=== PATIENT | female | born 1960 | race Caucasian/White ===

== ENCOUNTER → 2016-10-05 | Outpatient (CLI) | payer OTHER | END | disposition home or self-care (01) | LOC: CFH 14:45 | PROVIDERS: ATTEND Specialist | DX: Z12.31 Encounter for screening mammogram for malignant neoplasm of breast (principal) | CPT/HCPCS: 77063; G0202 ==

== ENCOUNTER 2017-11-02 06:18 | Day surgery (SDC) | payer OTHER ==
[~2017-11-02] VITALS: Ht 154.9 cm; Wt 80.5 kg
[~2017-11-02 06:18] MED LIST: APIX5TAB PO; FLEC50TA25 PO; LEVO100T5 PO; METO50TA6 PO
[2017-11-02 06:40] VITALS: BP 159/81
[2017-11-02] MEDS ORDERED: CETI-237 PO (06:53)
[2017-11-02] MEDS ORDERED: calcium/mag/zinc PO (06:53)
[2017-11-02] MEDS ORDERED: GLUC1CAP18 PO (06:53)
[2017-11-02] MEDS ORDERED: MULT-6 PO (06:53)
[2017-11-02] MEDS ORDERED: MIDAZOLAM 1 MG/ML, 5ML ONE (07:13)
[2017-11-02] MEDS ORDERED: FENTANYL PF 100 MCG/2ML ONE (07:13)
[2017-11-02] MEDS ORDERED: HEPARIN 1,000 UNITS/ML, 10ML ONE (07:14)
[2017-11-02] MEDS ORDERED: LIDOCAINE/PF 1%, 30ML ONE (07:30)
== END 2017-11-02 12:00 ==
LOC: CACL 06:18
PROVIDERS: ATTEND Internal Medicine Cardiovascular Disease
DX: I44.2 Atrioventricular block, complete (principal); Z91.040 Latex allergy status; Z91.018 Allergy to other foods; Z90.710 Acquired absence of both cervix and uterus; Z98.890 Other specified postprocedural states; Z79.82 Long term (current) use of aspirin
CPT/HCPCS: 93458; 99156; C1760; C1769; C1894; J2250; J3010; J3490; Q9967; J1644

== ENCOUNTER → 2017-12-20 | Outpatient (CLI) | payer OTHER ==
[~2017-12-20] MED LIST changes: +CETI-237 PO; +GLUC1CAP18 PO; +MULT-6 PO; +calcium/mag/zinc PO
== END | disposition home or self-care (01) ==
LOC: CFH 15:34
PROVIDERS: ATTEND Specialist
DX: Z12.31 Encounter for screening mammogram for malignant neoplasm of breast (principal); Z80.3 Family history of malignant neoplasm of breast
CPT/HCPCS: 77063; 77067

== ENCOUNTER 2018-10-19 06:34 | Day surgery (SDC) | payer OTHER ==
[~2018-10-19] VITALS: Ht 154.9 cm; Wt 80.5 kg
[2018-10-19 07:15] VITALS: BP 146/97
[2018-10-19] MEDS ORDERED: PROPOFOL 10 MG/ML, 20ML ONE (08:01)
== END 2018-10-19 09:30 | disposition home or self-care (01) ==
LOC: CACL 06:34
PROVIDERS: ATTEND Internal Medicine Cardiovascular Disease
DX: I48.91 Unspecified atrial fibrillation (principal); I10 Essential (primary) hypertension; E03.9 Hypothyroidism, unspecified; G47.30 Sleep apnea, unspecified; Z88.8 Allergy status to other drugs, medicaments and biological substances
CPT/HCPCS: 92960; J2704

== ENCOUNTER 2018-10-24 08:19 | Inpatient (IN) | payer OTHER ==
[~2018-10-24] VITALS: Ht 154.9 cm; Wt 78.8 kg
[2018-10-24 10:09] VITALS: BP 142/99
[2018-10-24] MEDS: PLEASE ENTER HEIGHT AND WEIGHT MC SCH ×2 (10:30→17:59)
[2018-10-24 10:37] LABS: ANION GAP 4 mmol/L (5-15); CALCIUM 9.9 mg/dL (8.5-10.1); CHLORIDE 115 mmol/L (98-107)
[2018-10-24 10:43] LABS: CHOL/HDL RATIO 3.6; CHOLESTEROL, TOTAL 158 mg/dL (140-239); FREE T4 (FREE THYROXINE) 1.39 ng/dL (0.76-1.46); HDL CHOL % 28 % (28-40); HDL CHOLESTEROL (DIRECT) 44 mg/dL (40-60); LDL CHOLESTEROL,CALCULATED 97 mg/dL (54-169); LDL/HDL RATIO 2.2 (0.5-3.0); TRIGLYCERIDES 83 mg/dL (50-200); TROPONIN I < 0.015 ng/mL (0.000-0.045); VLDL CHOLESTEROL 17 mg/dL (0-25)
[2018-10-24] MEDS: SOTALOL 80MG TABLET PO SCH ×2 (11:41→20:34)
[2018-10-24] MEDS ORDERED: ACETAMINOPHEN 325 MG TABLET PO PRN (12:00)
[2018-10-24] MEDS ORDERED: BISACODYL 5 MG EC TABLET PO PRN (12:00)
[2018-10-24] MEDS ORDERED: ONDANSETRON 2MG/ML, 2ML IV PRN (12:00)
[2018-10-24] MEDS ORDERED: BISACODYL 10 MG SUPP PR PRN (12:00)
[2018-10-24 13:29] VITALS: BP 131/93
[2018-10-24 16:23] LABS: TROPONIN I < 0.015 ng/mL (0.000-0.045)
[2018-10-24 19:37] VITALS: BP 132/87
[2018-10-24] MEDS: APIXABAN 5 MG TABLET PO SCH (20:34)
[2018-10-24 21:55] LABS: TROPONIN I < 0.015 ng/mL (0.000-0.045)
[2018-10-25 01:44] VITALS: BP 123/84
[2018-10-25] MEDS: PLEASE ENTER HEIGHT AND WEIGHT MC SCH (02:30)
[2018-10-25] MEDS: LEVOTHYROXINE 100 MCG TABLET PO SCH (05:54)
[2018-10-25 07:36] VITALS: BP 119/86
[2018-10-25] MEDS: APIXABAN 5 MG TABLET PO SCH ×2 (08:36→20:56)
[2018-10-25] MEDS: SOTALOL 80MG TABLET PO SCH (08:36)
[2018-10-25] MEDS ORDERED: METOPROLOL TARTRATE 25 MG TABLET PO SCH (12:30)
[2018-10-25] MEDS: METOPROLOL TARTRATE 25 MG TABLET PO SCH ×2 (12:41→17:54)
[2018-10-25 13:15] VITALS: BP 124/82
[2018-10-25] MEDS ORDERED: SOTALOL 80MG TABLET ONE (13:41)
[2018-10-25] MEDS ORDERED: SOTALOL 80MG TABLET PO ONE (14:00)
[2018-10-25 17:55] VITALS: BP 119/78
[2018-10-25] MEDS: SOTALOL 120MG TABLET PO SCH (17:56)
[2018-10-25 19:04] VITALS: BP 118/88
[2018-10-26 03:20] VITALS: BP 111/80
[2018-10-26] MEDS: LEVOTHYROXINE 100 MCG TABLET PO SCH (04:57)
[2018-10-26] MEDS: SOTALOL 120MG TABLET PO SCH ×2 (04:57→18:03)
[2018-10-26] MEDS: METOPROLOL TARTRATE 25 MG TABLET PO SCH ×2 (04:58→18:04)
[2018-10-26 07:23] VITALS: BP 117/89
[2018-10-26] MEDS: APIXABAN 5 MG TABLET PO SCH ×2 (08:48→21:14)
[2018-10-26 14:08] VITALS: BP 118/90
[2018-10-26] MEDS ORDERED: DIGOXIN 0.25 MG/ML, 2ML IVPush ONE (17:00)
[2018-10-26 20:34] VITALS: BP 117/79
[2018-10-27 00:31] VITALS: BP 126/86
[2018-10-27] MEDS: LEVOTHYROXINE 100 MCG TABLET PO SCH (05:37)
[2018-10-27] MEDS: METOPROLOL TARTRATE 25 MG TABLET PO SCH (05:39)
[2018-10-27] MEDS: SOTALOL 120MG TABLET PO SCH (05:40)
[2018-10-27] MEDS: APIXABAN 5 MG TABLET PO SCH (09:01)
[2018-10-27 09:02] VITALS: BP 124/83
[2018-10-27] MEDS ORDERED: PROPOFOL 10 MG/ML, 20ML ONE (11:00)
[2018-10-27] MEDS ORDERED: METO25TA35 PO (12:17)
[2018-10-27] MEDS ORDERED: SOTA120T14 PO (12:17)
== END 2018-10-27 15:29 | disposition home or self-care (01) | DRG 309 ==
LOC: 5SO 08:19 → DCLOUNGE 10-27 15:15
PROVIDERS: ADMIT Internal Medicine Cardiovascular Disease; ATTEND Internal Medicine Cardiovascular Disease
PROC: 5A2204Z Restoration of Cardiac Rhythm, Single (ICD-10-PCS; principal; 2018-10-27 11:30)
DX: I48.0 Paroxysmal atrial fibrillation (principal); D68.69 Other thrombophilia; E66.9 Obesity, unspecified; E03.9 Hypothyroidism, unspecified; I10 Essential (primary) hypertension; I48.92 Unspecified atrial flutter; I08.1 Rheumatic disorders of both mitral and tricuspid valves; G47.33 Obstructive sleep apnea (adult) (pediatric); R00.1 Bradycardia, unspecified; Z79.899 Other long term (current) drug therapy; Z90.89 Acquired absence of other organs; Z90.710 Acquired absence of both cervix and uterus; Z91.040 Latex allergy status; Z91.018 Allergy to other foods; Z68.32 Body mass index [BMI] 32.0-32.9, adult; Z88.8 Allergy status to other drugs, medicaments and biological substances
CPT/HCPCS: 36415; 80048; 80061; 84439; 84443; 84484; 85014; 85018; 92960; 93005; 93306; G0378; J2704; J1160

== ENCOUNTER → 2019-04-19 | Outpatient (CLI) | payer OTHER ==
[~2019-04-19] MED LIST changes: +IBUP-1902 PO; +LEVO100T PO; +METO25TA35 PO; +MULT-658 PO; +OMNIPAQUE 350 MG/ML, 150 ML BOTTLE ONE; +SOTA120T14 PO; +SOTA120T26 PO
== END | disposition home or self-care (01) ==
LOC: CFH 13:52
PROVIDERS: ATTEND Internal Medicine Cardiovascular Disease
DX: Z01.810 Encounter for preprocedural cardiovascular examination (principal); I48.91 Unspecified atrial fibrillation; Z88.8 Allergy status to other drugs, medicaments and biological substances
CPT/HCPCS: 71046; 75572; Q9967

== ENCOUNTER 2019-05-03 14:15 | Inpatient (IN) | payer OTHER ==
[~2019-05-03] VITALS: Ht 154.9 cm; Wt 80.8 kg
[~2019-05-03 14:15] MED LIST changes: -OMNIPAQUE 350 MG/ML, 150 ML BOTTLE ONE
[2019-05-03] MEDS ORDERED: METOPROLOL 1 MG/ML, 5ML ONE (14:55)
--- NOTE | 2019-05-03 14:55 | NUR ---
ERP TO THE BS PT AO4 FULLY MONITORED
[2019-05-03 14:58] LABS: BASOPHILS # (AUTO) 0.03 x10^3/uL (0-0.1); BASOPHILS % (AUTO) 0 % (0-1); EOSINOPHILS # (AUTO) 0.17 x10^3/uL (0-0.4); EOSINOPHILS % (AUTO) 1 % (1-7); LYMPHOCYTES # (AUTO) 2.15 x10^3/uL (1-3.4); LYMPHOCYTES % (AUTO) 14 % (22-44); MD NO; MEAN CORPUSCULAR HEMOGLOBIN 29.4 pg (27.0-34.8); MEAN CORPUSCULAR HGB CONC 32.4 g/dL (32.4-35.8); MEAN CORPUSCULAR VOLUME 90.6 fL (80-100); MONOCYTES # (AUTO) 0.62 x10^3/uL (0.2-0.8); MONOCYTES % (AUTO) 4 % (2-9); NEUTROPHILS % (AUTO) 80 % (42-75); PLATELET COUNT 309 x10^3/uL (130-400); RED BLOOD COUNT 5.12 x10^6/uL (3.82-5.3); RED CELL DISTRIBUTION WIDTH 12.6 % (9.6-15.2)
[2019-05-03] MEDS ORDERED: AMIODARONE 900 MG in DEXTROSE 5% 482 ML IV PRN (14:58)
[2019-05-03] MEDS ORDERED: METOPROLOL 1 MG/ML, 5ML IVPush ONE (15:00)
[2019-05-03 15:07] LABS: INTERNATIONAL NORMALIZED RATIO 1.01 (0.93-1.1); PROTHROMBIN TIME 10.6 Seconds (9.6-11.5)
[2019-05-03 15:10] LABS: ALANINE AMINOTRANSFERASE 40 U/L (12-78); ALBUMIN 3.6 g/dL (3.4-5.0); ANION GAP 5 mmol/L (5-15); BILIRUBIN, DIRECT 0.1 mg/dL (0.1-0.2); CHLORIDE 112 mmol/L (98-107)
[2019-05-03 15:15] LABS: ALKALINE PHOSPHATASE 136 U/L (45-117); BILIRUBIN,INDIRECT 0.4 mg/dL (0.0-2.0); BILIRUBIN,TOTAL 0.5 mg/dL (0.2-1.0); CREATININE 1.01 mg/dL (0.55-1.02); TOTAL PROTEIN 7.8 g/dL (6.4-8.2); TROPONIN I 0.021 ng/mL (0.000-0.045)
[2019-05-03 15:20] LABS: CALCIUM 9.7 mg/dL (8.5-10.1)
[2019-05-03] MEDS ORDERED: FILTER 0.22 MICRON FOR AMIODARONE IV PRN (15:30)
[2019-05-03] MEDS ORDERED: DIGOXIN 0.25 MG/ML, 2ML ONE (16:23)
[2019-05-03] MEDS ORDERED: DILTIAZEM 5 MG/ML, 5ML ONE (16:23)
[2019-05-03] MEDS ORDERED: DIGOXIN 0.25 MG/ML, 2ML IVPush ONE (16:30)
[2019-05-03] MEDS ORDERED: DILTIAZEM 5 MG/ML, 5ML IVPush ONE (16:30)
--- NOTE | 2019-05-03 16:48 | NUR ---
REPORT CALLED TO THE FLOOR REVIEWED CARDIZEM DRIP AND RELATED HEART RATE TO BE WATCHED AND STARTED ON THE FLOOR
[2019-05-03] MEDS ORDERED: DILTIAZEM 125 MG in SODIUM CHLORIDE 0.9% 100 ML IV SCH (17:00)
[2019-05-03] MEDS ORDERED: METO75TA PO (18:12)
[2019-05-03 18:16] VITALS: BP 132/90
[2019-05-03 19:02] VITALS: BP 117/80
[2019-05-03] MEDS: APIXABAN 5 MG TABLET PO SCH (20:15)
[2019-05-03] MEDS ORDERED: DIGOXIN 0.25 MG/ML, 2ML IVPush SCH (20:30)
[2019-05-04 02:07] VITALS: BP 106/77
[2019-05-04] MEDS ORDERED: DIGOXIN 0.25 MG/ML, 2ML IVPush ONE ×2 (02:15→04:25)
[2019-05-04] MEDS: DILTIAZEM 125 MG in SODIUM CHLORIDE 0.9% 100 ML IV SCH ×2 (02:24→21:52)
[2019-05-04] MEDS: METOPROLOL 1 MG/ML, 5ML IVPush PRN ×4 (03:19→17:39)
[2019-05-04 05:39] LABS: ANION GAP 5 mmol/L (5-15); CHLORIDE 111 mmol/L (98-107)
[2019-05-04] MEDS: LEVOTHYROXINE 100 MCG TABLET PO SCH (06:37)
[2019-05-04 07:25] VITALS: BP 103/70
[2019-05-04] MEDS: MULTIVITAMIN 1 TABLET PO SCH (08:37)
[2019-05-04] MEDS: DIGOXIN 0.25 MG TABLET PO SCH (08:37)
[2019-05-04] MEDS: APIXABAN 5 MG TABLET PO SCH ×2 (08:37→20:13)
[2019-05-04 13:24] VITALS: BP 117/88
[2019-05-04] MEDS: ACETAMINOPHEN 325 MG TABLET PO PRN (15:36)
[2019-05-04] MEDS ORDERED: DILTIAZEM 125 MG in SODIUM CHLORIDE 0.9% 100 ML IV SCH (17:00)
[2019-05-04 20:04] VITALS: BP 103/69
[2019-05-05] MEDS: METOPROLOL 1 MG/ML, 5ML IVPush PRN ×6 (01:59→18:32)
[2019-05-05 02:09] VITALS: BP 119/65
[2019-05-05] MEDS: ACETAMINOPHEN 325 MG TABLET PO PRN (02:09)
[2019-05-05] MEDS ORDERED: FILTER 0.22 MICRON IV PRN (06:00)
[2019-05-05] MEDS ORDERED: AMIODARONE 150 MG in DEXTROSE 5% 100 ML IV ONE (06:00)
[2019-05-05] MEDS ORDERED: AMIODARONE 900 MG in DEXTROSE 5% 482 ML IV PRN (06:00)
[2019-05-05] MEDS ORDERED: FILTER 0.22 MICRON IV ONE (06:00)
[2019-05-05 06:04] LABS: CHLORIDE 110 mmol/L (98-107)
[2019-05-05 06:09] LABS: ANION GAP 5 mmol/L (5-15); CALCIUM 9.1 mg/dL (8.5-10.1); CREATININE 0.86 mg/dL (0.55-1.02)
[2019-05-05] MEDS: LEVOTHYROXINE 100 MCG TABLET PO SCH (06:56)
[2019-05-05 07:23] LABS: MEAN CORPUSCULAR HEMOGLOBIN 28.9 pg (27.0-34.8); MEAN CORPUSCULAR HGB CONC 32.3 g/dL (32.4-35.8); MEAN CORPUSCULAR VOLUME 89.5 fL (80-100); MEAN PLATELET VOLUME 9.7 fL (7.4-10.4); PLATELET COUNT 217 x10^3/uL (130-400); RED BLOOD COUNT 4.75 x10^6/uL (3.82-5.3); RED CELL DISTRIBUTION WIDTH 12.4 % (9.6-15.2)
[2019-05-05] MEDS: AMIODARONE 200 MG TABLET PO SCH ×3 (07:50→21:12)
[2019-05-05 08:28] LABS: BASOPHILS # (AUTO) 0.04 x10^3/uL (0-0.1); BASOPHILS % (AUTO) 0 % (0-1); EOSINOPHILS # (AUTO) 0.07 x10^3/uL (0-0.4); EOSINOPHILS % (AUTO) 1 % (1-7); LYMPHOCYTES # (AUTO) 1.61 x10^3/uL (1-3.4); LYMPHOCYTES % (AUTO) 11 % (22-44); MD SCAN; MONOCYTES # (AUTO) 0.65 x10^3/uL (0.2-0.8); MONOCYTES % (AUTO) 4 % (2-9); NEUTROPHILS # (AUTO) 12.43 x10^3/uL (1.8-6.8); NEUTROPHILS % (AUTO) 84 % (42-75)
[2019-05-05] MEDS: DILTIAZEM 125 MG in SODIUM CHLORIDE 0.9% 100 ML IV SCH (09:02)
[2019-05-05] MEDS: APIXABAN 5 MG TABLET PO SCH ×2 (09:02→21:12)
[2019-05-05] MEDS: DIGOXIN 0.25 MG TABLET PO SCH (09:02)
[2019-05-05] MEDS: MULTIVITAMIN 1 TABLET PO SCH (09:02)
[2019-05-05 10:12] VITALS: BP 121/82
[2019-05-05 14:50] VITALS: BP 113/86
[2019-05-05] MEDS: METOPROLOL TARTRATE 25 MG TABLET PO SCH (17:06)
[2019-05-05 19:25] VITALS: BP 117/90
[2019-05-06 01:23] VITALS: BP 118/88
[2019-05-06] MEDS: METOPROLOL TARTRATE 25 MG TABLET PO SCH ×2 (06:17→18:01)
[2019-05-06] MEDS: LEVOTHYROXINE 100 MCG TABLET PO SCH (06:17)
[2019-05-06] MEDS: METOPROLOL 1 MG/ML, 5ML IVPush PRN ×3 (06:56→15:27)
[2019-05-06 07:01] LABS: ANION GAP 5 mmol/L (5-15); CALCIUM 9.2 mg/dL (8.5-10.1); CHLORIDE 109 mmol/L (98-107); CREATININE 0.86 mg/dL (0.55-1.02)
[2019-05-06 07:56] VITALS: BP 111/84
[2019-05-06] MEDS: DIGOXIN 0.25 MG TABLET PO SCH (08:04)
[2019-05-06] MEDS: MULTIVITAMIN 1 TABLET PO SCH (08:05)
[2019-05-06] MEDS: APIXABAN 5 MG TABLET PO SCH ×2 (08:05→22:07)
[2019-05-06] MEDS: AMIODARONE 200 MG TABLET PO SCH ×3 (08:05→21:00)
[2019-05-06 12:02] VITALS: BP 121/91
[2019-05-06] MEDS ORDERED: METOPROLOL TARTRATE 25 MG TABLET PO ONE (17:00)
[2019-05-06] MEDS ORDERED: FUROSEMIDE 20 MG/2 ML IV ONE (18:00)
[2019-05-06 18:01] VITALS: BP 121/88
[2019-05-06 18:53] VITALS: BP 128/91
[2019-05-06] MEDS ORDERED: OMNIPAQUE 350 MG/ML, 100ML BOTTLE ONE (19:20)
[2019-05-06] MEDS: SODIUM CHLORIDE 0.9% 1,000 ML IV SCH (21:53)
[2019-05-07 03:41] VITALS: BP 133/80
[2019-05-07 05:09] LABS: ANION GAP 9 mmol/L (5-15); CHLORIDE 104 mmol/L (98-107)
[2019-05-07 05:11] LABS: CREATININE 0.81 mg/dL (0.55-1.02)
[2019-05-07] MEDS: LEVOTHYROXINE 100 MCG TABLET PO SCH (05:39)
[2019-05-07] MEDS: METOPROLOL TARTRATE 25 MG TABLET PO SCH ×2 (05:40→17:12)
[2019-05-07 06:52] VITALS: BP 127/71
[2019-05-07] MEDS: APIXABAN 5 MG TABLET PO SCH ×2 (08:31→20:37)
[2019-05-07] MEDS: SODIUM CHLORIDE 0.9% 1,000 ML IV SCH (08:31)
[2019-05-07] MEDS: DIGOXIN 0.25 MG TABLET PO SCH (08:47)
[2019-05-07] MEDS: MULTIVITAMIN 1 TABLET PO SCH (08:47)
[2019-05-07] MEDS: AMIODARONE 200 MG TABLET PO SCH ×3 (08:47→20:37)
[2019-05-07] MEDS ORDERED: LIDOCAINE 2%, 20ML ONE (09:34)
[2019-05-07] MEDS ORDERED: PHENYLEPHRINE 10 MG/ML ONE (10:02)
[2019-05-07] MEDS ORDERED: ONDANSETRON 2MG/ML, 2ML ONE ×2 (10:02→10:48)
[2019-05-07] MEDS ORDERED: LIDOCAINE-MPF 2% ,5ML ONE (10:02)
[2019-05-07] MEDS ORDERED: SUCCINYLCHOLINE 20 MG/ML, 10ML ONE (10:02)
[2019-05-07] MEDS ORDERED: DEXAMETHASONE 4 MG/ML, 1ML ONE (10:02)
[2019-05-07] MEDS ORDERED: FENTANYL PF 100 MCG/2ML ONE ×2 (10:08→10:45)
[2019-05-07] MEDS: DIAZEPAM 5 MG/ML, 2ML IVPush PRN ×2 (11:35→13:32)
[2019-05-07] MEDS ORDERED: METOPROLOL 1 MG/ML, 5ML ONE (11:39)
[2019-05-07] MEDS ORDERED: DIAZEPAM 5 MG/ML, 2ML ONE (11:39)
[2019-05-07] MEDS: METOPROLOL 1 MG/ML, 5ML IVPush PRN ×2 (11:40→15:20)
[2019-05-07 11:51] LABS: CELLS COUNTED 51
[2019-05-07] MEDS ORDERED: hydrALAzine 20 MG/ML, 1ML IV PRN (12:00)
[2019-05-07] MEDS ORDERED: LABETALOL 5MG/ML, 20ML IV PRN (12:00)
[2019-05-07] MEDS ORDERED: PROMETHAZINE 25 MG/ML, 1ML IV PRN (12:00)
[2019-05-07] MEDS ORDERED: MEPERIDINE/PF 25MG/ML,1ML IVPush PRN (12:00)
[2019-05-07] MEDS ORDERED: FENTANYL PF 100 MCG/2ML IV PRN (12:00)
[2019-05-07] MEDS ORDERED: ONDANSETRON 2MG/ML, 2ML IV PRN (12:00)
[2019-05-07] MEDS ORDERED: ACETAMINOPHEN 325 MG TABLET PO PRN (12:00)
[2019-05-07] MEDS ORDERED: METOPROLOL 1 MG/ML, 5ML IVPush ONE (12:00)
[2019-05-07] MEDS ORDERED: HYDROcodone/APAP 7.5-325MG/15ML UDC PO PRN (12:00)
[2019-05-07] MEDS ORDERED: EPHEDRINE 50 MG/ML, 1ML IVPush PRN (12:00)
[2019-05-07] MEDS ORDERED: HYDROmorphone 2 MG/ML, 1ML IVPush PRN (12:00)
[2019-05-07 13:00] VITALS: BP 130/81
[2019-05-07 14:46] VITALS: BP 120/85
[2019-05-07 18:39] VITALS: BP 132/89
[2019-05-07] MEDS: IBUPROFEN 600 MG TABLET PO PRN (20:37)
[2019-05-08 01:02] VITALS: BP 106/66
[2019-05-08] MEDS: IBUPROFEN 600 MG TABLET PO PRN (04:04)
[2019-05-08] MEDS: LEVOTHYROXINE 100 MCG TABLET PO SCH (05:51)
[2019-05-08] MEDS: METOPROLOL TARTRATE 25 MG TABLET PO SCH ×2 (05:52→17:29)
[2019-05-08 06:38] VITALS: BP 122/79
[2019-05-08] MEDS: DIGOXIN 0.25 MG TABLET PO SCH (08:27)
[2019-05-08] MEDS: MULTIVITAMIN 1 TABLET PO SCH (08:27)
[2019-05-08] MEDS: APIXABAN 5 MG TABLET PO SCH ×2 (08:27→20:59)
[2019-05-08] MEDS: AMIODARONE 200 MG TABLET PO SCH ×3 (08:55→21:00)
[2019-05-08 09:53] LABS: ANION GAP 6 mmol/L (5-15); CALCIUM 9.7 mg/dL (8.5-10.1); CHLORIDE 108 mmol/L (98-107); CREATININE 0.93 mg/dL (0.55-1.02)
[2019-05-08 12:18] VITALS: BP 108/73
[2019-05-08] MEDS ORDERED: METOPROLOL 1 MG/ML, 5ML IVPush ONE (12:30)
[2019-05-08 12:41] VITALS: BP 115/84
[2019-05-08 20:16] VITALS: BP 130/90
[2019-05-09 01:25] VITALS: BP 119/80
[2019-05-09] MEDS: LEVOTHYROXINE 100 MCG TABLET PO SCH (05:27)
[2019-05-09] MEDS: METOPROLOL TARTRATE 25 MG TABLET PO SCH ×2 (05:27→17:53)
[2019-05-09 07:08] VITALS: BP 124/85
[2019-05-09] MEDS: DIGOXIN 0.25 MG TABLET PO SCH (08:07)
[2019-05-09] MEDS: APIXABAN 5 MG TABLET PO SCH ×2 (08:07→21:29)
[2019-05-09] MEDS: MULTIVITAMIN 1 TABLET PO SCH (08:07)
[2019-05-09] MEDS: AMIODARONE 200 MG TABLET PO SCH ×3 (08:07→21:29)
[2019-05-09] MEDS ORDERED: PROPOFOL 10 MG/ML, 20ML ONE (08:57)
[2019-05-09 12:15] VITALS: BP 105/66
[2019-05-09 17:53] VITALS: BP 114/76
[2019-05-09 18:40] VITALS: BP 131/84
[2019-05-10 01:21] VITALS: BP 119/69
[2019-05-10 05:17] VITALS: BP 120/78
[2019-05-10] MEDS: METOPROLOL TARTRATE 25 MG TABLET PO SCH ×2 (05:18→18:20)
[2019-05-10] MEDS: LEVOTHYROXINE 100 MCG TABLET PO SCH (05:19)
[2019-05-10 05:38] LABS: CHLORIDE 111 mmol/L (98-107)
[2019-05-10 05:49] LABS: CALCIUM 8.9 mg/dL (8.5-10.1); CREATININE 0.81 mg/dL (0.55-1.02)
[2019-05-10 06:20] LABS: ANION GAP 5 mmol/L (5-15)
[2019-05-10 06:47] VITALS: BP 106/72
[2019-05-10] MEDS: DIGOXIN 0.25 MG TABLET PO SCH (08:46)
[2019-05-10] MEDS: MULTIVITAMIN 1 TABLET PO SCH (08:47)
[2019-05-10] MEDS: AMIODARONE 200 MG TABLET PO SCH ×3 (08:47→22:32)
[2019-05-10] MEDS: APIXABAN 5 MG TABLET PO SCH ×2 (08:47→22:31)
[2019-05-10 12:19] VITALS: BP 121/80
[2019-05-10 20:00] VITALS: BP 132/85
[2019-05-11 01:19] VITALS: BP 125/81
[2019-05-11 05:08] VITALS: BP 119/68
[2019-05-11] MEDS: METOPROLOL TARTRATE 25 MG TABLET PO SCH (05:09)
[2019-05-11] MEDS: LEVOTHYROXINE 100 MCG TABLET PO SCH (05:09)
[2019-05-11 08:29] VITALS: BP 117/75
[2019-05-11] MEDS: MULTIVITAMIN 1 TABLET PO SCH (08:40)
[2019-05-11] MEDS: AMIODARONE 200 MG TABLET PO SCH (08:40)
[2019-05-11] MEDS: APIXABAN 5 MG TABLET PO SCH (08:40)
[2019-05-11] MEDS: DIGOXIN 0.25 MG TABLET PO SCH (09:49)
[2019-05-11] MEDS ORDERED: DIGO250T PO (13:08)
[2019-05-11] MEDS ORDERED: AMIO200T42 PO (13:08)
[2019-05-11] MEDS ORDERED: METO25TA35 PO (13:08)
[2019-05-11 13:10] VITALS: BP 146/85
== END 2019-05-11 14:00 | disposition home or self-care (01) | DRG 308 ==
LOC: ED 15:07 → EDIP 15:08 → ED 15:54 → 5SO 17:25 → DCLOUNGE 05-11 13:38
PROVIDERS: ADMIT Family Medicine; ATTEND Family Medicine
PROC: 5A2204Z Restoration of Cardiac Rhythm, Single (ICD-10-PCS; 2019-05-03)
PROC: 5A09357 Assistance with Respiratory Ventilation, Less than 24 Consecutive Hours, Continuous Positive Airway Pressure (ICD-10-PCS; 2019-05-04)
PROC: 5A09357 Assistance with Respiratory Ventilation, Less than 24 Consecutive Hours, Continuous Positive Airway Pressure (ICD-10-PCS; 2019-05-05)
PROC: 5A09357 Assistance with Respiratory Ventilation, Less than 24 Consecutive Hours, Continuous Positive Airway Pressure (ICD-10-PCS; 2019-05-06)
PROC: 5A2204Z Restoration of Cardiac Rhythm, Single (ICD-10-PCS; 2019-05-07)
PROC: 5A09357 Assistance with Respiratory Ventilation, Less than 24 Consecutive Hours, Continuous Positive Airway Pressure (ICD-10-PCS; 2019-05-07)
PROC: 0W9D30Z Drainage of Pericardial Cavity with Drainage Device, Percutaneous Approach (ICD-10-PCS; principal; 2019-05-07 13:00)
PROC: 5A2204Z Restoration of Cardiac Rhythm, Single (ICD-10-PCS; 2019-05-09)
PROC: 5A09357 Assistance with Respiratory Ventilation, Less than 24 Consecutive Hours, Continuous Positive Airway Pressure (ICD-10-PCS; 2019-05-10)
PROC: 5A09357 Assistance with Respiratory Ventilation, Less than 24 Consecutive Hours, Continuous Positive Airway Pressure (ICD-10-PCS; 2019-05-11)
DX: I48.19 Other persistent atrial fibrillation (principal); J96.00 Acute respiratory failure, unspecified whether with hypoxia or hypercapnia; D68.59 Other primary thrombophilia; I31.3 Pericardial effusion (noninflammatory); I48.92 Unspecified atrial flutter; E03.9 Hypothyroidism, unspecified; E66.3 Overweight; I11.9 Hypertensive heart disease without heart failure; Z82.49 Family history of ischemic heart disease and other diseases of the circulatory system; Z79.01 Long term (current) use of anticoagulants; Z87.891 Personal history of nicotine dependence
CPT/HCPCS: 33010; 36415; 89051; 92960; 96374; 96375; 99285; J3490; 71045; 71275; 76930; 80048; 80076; 80162; 82040; 83615; 83735; 84157; 84443; 84484; 85025; 85610; 85730; 93005; 93306; 93308; 93321; 93325; C1729; C1769; G0378; J1100; J2405; J2704; J3010; J3360; Q9967; J0282; J0330; J1160; J1940; J2370; J7030

== ENCOUNTER 2019-05-14 15:49 | Emergency (ER) | payer OTHER ==
[~2019-05-14] VITALS: Ht 154.9 cm; Wt 78.0 kg
[~2019-05-14 15:49] MED LIST changes: +AMIO200T42 PO; +DIGO250T PO; +METO75TA PO
--- NOTE | 2019-05-14 16:25 | NUR ---
ASSUMED CARE OF PT AT THIS TIME FROM LOBBY. AMBULATORY TO ROOM WITH STEADY GAIT. 59 Y/O F REPORTS "SHORT OF BREATH BASICALLY SINCE I GOT DISCHARGE, I WAS JUST HERE AND THEY DRAINED FLUID FROM AROUND MY HEART, I THINK I HAVE AN INFECTION AROUND MY HEART, I HAD A FEVER OF 102 ON AND OFF LAST FEW DAYS, NO CHEST PAINS OR PALPITATIONS THIS TIME." A&OX4. CONT PULSE OX, BP, CARDIAC MONITORS APPLIED. ST ON MONITOR. VSS. DENIES ANY PAIN, CP, N/V/D, DIZZINESS, CASTANEDA. CALL LIGHT IN REACH. FALL PRECAUTIONS IN PLACE. SIDE RAILS UPX2. SPOUSE AT BEDSIDE. DR. FRY AT BEDSIDE FOR EVALUATION. ORDERS RECEIVED. ASSESSMENT COMPLETED.
[2019-05-14] MEDS ORDERED: SODIUM CHLORIDE FLUSH 10ML SYR IVF ONE (16:30)
--- NOTE | 2019-05-14 16:35 | NUR ---
PT AMBULATED TO RESTROOM WITH STEADY GAIT, CLEAN CATCH UA COLLECTED AND SENT TO LAB. RESTING IN POSITION OF COMFORT. TO START IV AND DRAW LABS.
[2019-05-14 16:51] LABS: BASOPHILS # (AUTO) 0.03 x10^3/uL (0-0.1); BASOPHILS % (AUTO) 0 % (0-1); EOSINOPHILS # (AUTO) 0.03 x10^3/uL (0-0.4); EOSINOPHILS % (AUTO) 0 % (1-7); LYMPHOCYTES # (AUTO) 1.43 x10^3/uL (1-3.4); LYMPHOCYTES % (AUTO) 9 % (22-44); MD NO; MEAN CORPUSCULAR HGB CONC 32.4 g/dL (32.4-35.8); MEAN CORPUSCULAR VOLUME 89.5 fL (80-100); MEAN PLATELET VOLUME 8.6 fL (7.4-10.4); MONOCYTES # (AUTO) 0.68 x10^3/uL (0.2-0.8); MONOCYTES % (AUTO) 4 % (2-9); NEUTROPHILS # (AUTO) 14.12 x10^3/uL (1.8-6.8); NEUTROPHILS % (AUTO) 87 % (42-75); PLATELET COUNT 289 x10^3/uL (130-400); RED BLOOD COUNT 5.17 x10^6/uL (3.82-5.3); RED CELL DISTRIBUTION WIDTH 12.4 % (9.6-15.2)
--- NOTE | 2019-05-14 16:53 | NUR ---
UNSUCCESSFUL IV START TO LAC BY THIS RN. IV WAS PATENT, ABLE TO DRAW LABS AND BLOOD CULTURE BUT UNABLE TO GET CATHETER TO ADVANCE FULLY WITHOUT REPORT OF PAIN BY PT, IV WAS REMOVED, TIP INTACT. DISCUSSED WITH DEEJAY CHU, LENY ROSE AT BEDSIDE FOR IV START.
[2019-05-14 16:56] LABS: MICROSCOPIC NOT IND
[2019-05-14 16:58] LABS: CULTURE INDICATED? NO
--- NOTE | 2019-05-14 17:07 | NUR ---
LENY RN SUCCESSFULLY PLACED IV, CT CALLED AND NOTIFIED PT READY FOR EXAM.
[2019-05-14 17:11] LABS: ALANINE AMINOTRANSFERASE 46 U/L (12-78); ALBUMIN 2.9 g/dL (3.4-5.0); ANION GAP 7 mmol/L (5-15); CALCIUM 9.2 mg/dL (8.5-10.1); CHLORIDE 105 mmol/L (98-107); CREATININE 0.83 mg/dL (0.55-1.02)
[2019-05-14 17:15] LABS: ALKALINE PHOSPHATASE 139 U/L (45-117); BILIRUBIN,TOTAL 0.5 mg/dL (0.2-1.0); TOTAL PROTEIN 7.6 g/dL (6.4-8.2); TROPONIN I < 0.015 ng/mL (0.000-0.045)
--- NOTE | 2019-05-14 17:31 | NUR ---
PT AWAITING CT. RESTING IN POSITION OF COMFORT. RESP REGULAR AND UNLABORED. CONTINUES TO SPEAK IN FULL SENTENCES. NAD NOTED. DENIES ANY PAIN OR CP. CALL LIGHT IN REACH. FALL PRECAUTIONS IN PLACE. VSS.
--- NOTE | 2019-05-14 18:00 | NUR ---
PT IN CT
[2019-05-14] MEDS ORDERED: OMNIPAQUE 350 MG/ML, 100ML BOTTLE ONE (18:14)
[2019-05-14 18:31] VITALS: BP 136/99
--- NOTE | 2019-05-14 18:31 | NUR ---
PT BACK FROM CT, NAD NOTED. RESTING IN POSITION OF COMFORT. DENIES NEED TO USE RESTROOM AND ANY PAIN. PT UP FOR RECHECK. CALL LIGHT IN REACH. VSS.
--- NOTE | 2019-05-14 18:51 | NUR ---
DR. FRY AT BEDSIDE FOR RECHECK, DISCUSSING POC. AWAITING FLU RESULTS FROM LAB. PT MOVED TO ROOM 19 PER HISTOLOGIST TECHNOLOGIST. BEDSIDE REPORT AND CARE TO GALE ROSE AT THIS TIME.
[2019-05-14 18:56] LABS: RAPID INFLUENZA A Negative (Negative); RAPID INFLUENZA B Negative (Negative)
--- NOTE | 2019-05-14 19:12 | NUR ---
REPORT FROM MILTON BLANCO. PT RESTING IN ROOM WITH AT . ZEESHAN, DR. FRY AWARE. ALL OTHER VSS. NO NEEDS EXPRESSED. CALL LIGHT WITHIN REACH. ALL RESULTS BACK AT THIS TIME. CHART UP FOR RECHECK.
--- NOTE | 2019-05-14 19:27 | NUR ---
TECH TO BS TO REPEAT EKG PER PT REQUEST.
[2019-05-14] MEDS ORDERED: METOPROLOL TARTRATE 50 MG TABLET ONE (19:47)
[2019-05-14] MEDS ORDERED: METOPROLOL TARTRATE 50 MG TABLET PO ONE (20:00)
== END 2019-05-14 20:22 | disposition home or self-care (01) ==
LOC: ED 20:00
DX: I11.0 Hypertensive heart disease with heart failure (principal); I50.9 Heart failure, unspecified; J90 Pleural effusion, not elsewhere classified; R50.9 Fever, unspecified; R06.00 Dyspnea, unspecified; E03.9 Hypothyroidism, unspecified; I48.91 Unspecified atrial fibrillation; Z72.89 Other problems related to lifestyle
CPT/HCPCS: 36415; 71275; 80053; 80162; 81003; 83605; 83735; 83880; 84145; 84484; 85025; 87040; 87400; 93005; 99284; Q9967

== ENCOUNTER 2019-05-22 12:09 | Outpatient (CLI) | payer OTHER ==
[2019-05-22 15:01] LABS: MICROSCOPIC INDICATED
[2019-05-22 15:16] LABS: CULTURE INDICATED? NO
== END 2019-05-22 23:59 | disposition home or self-care (01) ==
LOC: CVU 12:09 → RAD 23:59
PROVIDERS: ATTEND Nurse Practitioner Family
DX: I51.7 Cardiomegaly (principal); J98.11 Atelectasis; J90 Pleural effusion, not elsewhere classified; I31.3 Pericardial effusion (noninflammatory)
CPT/HCPCS: 36415; 71046; 81001; 87040; 93308

== ENCOUNTER 2019-05-25 10:21 | Day surgery (SDC) | payer OTHER ==
[~2019-05-25] VITALS: Ht 154.9 cm; Wt 77.3 kg
[2019-05-25] MEDS ORDERED: ACET-2065 PO (11:08)
[2019-05-25] MEDS ORDERED: COLC0.6T37 PO (11:08)
[2019-05-25] MEDS ORDERED: FURO20TA3 PO (11:08)
[2019-05-25] MEDS ORDERED: ACET650S21 PO (11:08)
[2019-05-25] MEDS ORDERED: AMIO200T42 PO (11:08)
[2019-05-25] MEDS ORDERED: ACET650S12 PR (11:08)
[2019-05-25 11:13] VITALS: BP 147/107
[2019-05-25] MEDS ORDERED: PROPOFOL 10 MG/ML, 20ML ONE (17:28)
== END 2019-05-25 13:56 | disposition home or self-care (01) ==
LOC: CACL 10:21
PROVIDERS: ATTEND Internal Medicine Cardiovascular Disease
DX: I48.92 Unspecified atrial flutter (principal); I48.91 Unspecified atrial fibrillation; E66.3 Overweight; Z79.01 Long term (current) use of anticoagulants; Z79.890 Hormone replacement therapy; Z79.899 Other long term (current) drug therapy; Z88.8 Allergy status to other drugs, medicaments and biological substances; Z91.040 Latex allergy status; Z91.018 Allergy to other foods
CPT/HCPCS: 92960; J2704

== ENCOUNTER → 2019-08-22 | Outpatient (CLI) | payer OTHER ==
[~2019-08-22] MED LIST changes: +ACET-2065 PO; +ACET650S12 PR; +ACET650S21 PO; +COLC0.6T37 PO; -DIGO250T PO; +DIGO250T3 PO; +FURO20TA3 PO
== END | disposition home or self-care (01) ==
LOC: CFH 14:42
PROVIDERS: ATTEND Internal Medicine Cardiovascular Disease
DX: I08.1 Rheumatic disorders of both mitral and tricuspid valves (principal); I48.91 Unspecified atrial fibrillation
CPT/HCPCS: 93306

== ENCOUNTER → 2020-01-22 | Outpatient (CLI) | payer OTHER ==
[2020-01-22 12:57] LABS: ALANINE AMINOTRANSFERASE 83 U/L (12-78); ALBUMIN 3.8 g/dL (3.4-5.0); ANION GAP 5 mmol/L (5-15); CALCIUM 8.9 mg/dL (8.5-10.1); CHLORIDE 111 mmol/L (98-107)
[2020-01-22 13:09] LABS: ALKALINE PHOSPHATASE 149 U/L (45-117); BILIRUBIN,TOTAL 0.5 mg/dL (0.2-1.0); CREATININE 1.09 mg/dL (0.55-1.02); T4 (THYROXINE) 14.2 mcg/dL (4.8-13.9); TOTAL PROTEIN 7.6 g/dL (6.4-8.2)
== END | disposition home or self-care (01) ==
LOC: CFH 08:11
PROVIDERS: ATTEND Internal Medicine Cardiovascular Disease
DX: I08.1 Rheumatic disorders of both mitral and tricuspid valves (principal); R94.31 Abnormal electrocardiogram [ECG] [EKG]; Z98.890 Other specified postprocedural states
CPT/HCPCS: 36415; 80053; 84436; 84443; 84481; 93306

== ENCOUNTER → 2020-03-13 | Outpatient (CLI) | payer OTHER | END | disposition home or self-care (01) | LOC: CFH 15:17 | PROVIDERS: ATTEND Family Medicine | DX: Z12.31 Encounter for screening mammogram for malignant neoplasm of breast (principal) | CPT/HCPCS: 77063; 77067 ==

== ENCOUNTER → 2020-04-30 | Outpatient (CLI) | payer OTHER | END | disposition home or self-care (01) | LOC: CFH 15:15 | PROVIDERS: ATTEND Psychiatry & Neurology Neurology | DX: R41.3 Other amnesia (principal); F03.90 Unspecified dementia, unspecified severity, without behavioral disturbance, psychotic disturbance, mood disturbance, and anxiety; Z81.8 Family history of other mental and behavioral disorders | CPT/HCPCS: 70544; 70551 ==

== ENCOUNTER 2020-12-26 09:54 | Outpatient (CLI) | payer OTHER | END 2020-12-26 23:59 | disposition home or self-care (01) | LOC: CFH 09:54 | PROVIDERS: ATTEND Internal Medicine Cardiovascular Disease | DX: I48.91 Unspecified atrial fibrillation (principal); R03.0 Elevated blood-pressure reading, without diagnosis of hypertension | CPT/HCPCS: 71046 ==

== ENCOUNTER 2021-03-16 14:14 | Emergency (ER) | payer OTHER ==
[~2021-03-16] VITALS: Ht 154.9 cm; Wt 70.5 kg
[2021-03-16] MEDS ORDERED: SODIUM CHLORIDE FLUSH 10ML SYR IVF ONE (15:00)
--- NOTE | 2021-03-16 15:11 | NUR ---
THIS IS A 60 YEAR OLD FEMALE WHO C/O OF BEING IN AFIB ON AND OFF SINCE JANUARY. PT STATES SHE HAD ABLASION X 2 YEARS AGO.
[2021-03-16 15:57] LABS: BASOPHILS % (AUTO) 1 % (0-1); EOSINOPHILS % (AUTO) 1 % (1-7); LYMPHOCYTES % (AUTO) 15 % (22-44); MEAN CORPUSCULAR HEMOGLOBIN 29.6 pg (27.0-34.8); MEAN CORPUSCULAR HGB CONC 33.6 g/dL (32.4-35.8); MEAN PLATELET VOLUME 11.1 fL (7.4-10.4); MONOCYTES % (AUTO) 5 % (2-9); NEUTROPHILS % (AUTO) 79 % (42-75); PLATELET COUNT 168 x10^3/uL (130-400); RED BLOOD COUNT 5.53 x10^6/uL (3.82-5.3); RED CELL DISTRIBUTION WIDTH 13.9 % (9.6-15.2)
[2021-03-16 16:04] LABS: ALANINE AMINOTRANSFERASE 80 U/L (12-78); ALBUMIN 4.1 g/dL (3.4-5.0); ANION GAP 3 mmol/L (5-15); CALCIUM 9.6 mg/dL (8.5-10.1); CHLORIDE 109 mmol/L (98-107); CREATININE 0.99 mg/dL (0.55-1.02)
[2021-03-16 16:08] LABS: ALKALINE PHOSPHATASE 171 U/L (45-117); BILIRUBIN,TOTAL 0.4 mg/dL (0.2-1.0); TOTAL PROTEIN 8.2 g/dL (6.4-8.2); TROPONIN I < 0.015 ng/mL (0.000-0.045)
[2021-03-16] MEDS ORDERED: PROPOFOL 10 MG/ML, 20ML IVPush ONE (17:00)
[2021-03-16] MEDS ORDERED: PROPOFOL 10 MG/ML, 20ML ONE (17:02)
--- NOTE | 2021-03-16 17:31 | NUR ---
CONSENT SIGNED FOR CARDIOVERSION, PT VERBALIZED UNDERSTANDING
--- NOTE | 2021-03-16 17:46 | NUR ---
CARVERSION COMPLETED, HR 55 SINUS. PLEASE SEE PROCEEDURAL SEDATION FLOW SHEET
[2021-03-16 18:34] VITALS: BP 133/85
--- NOTE | 2021-03-16 18:40 | NUR ---
PIV REMOVED TIP INTACT Patient/Caregiver given discharge instructions and they have confirmed that they understand the instructions. Patient ambulatory with steady gait. NAD, all questions answered appropriately, denies additional needs at this time. No personal belongings left in room after discharge.
== END 2021-03-16 19:07 | disposition home or self-care (01) ==
LOC: ED 18:45
DX: I48.92 Unspecified atrial flutter (principal); I10 Essential (primary) hypertension; E03.9 Hypothyroidism, unspecified
CPT/HCPCS: 36415; 71045; 80053; 80162; 83735; 84484; 85025; 92960; 93005; 99285; J2704